=== PATIENT | male | born 1985 | race Caucasian/White ===

== ENCOUNTER 2018-01-05 12:41 | Emergency (ER) | payer OTHER ==
[~2018-01-05] VITALS: Ht 175.3 cm; Wt 63.5 kg
== END 2018-01-05 14:07 | disposition home or self-care (01) ==
LOC: ER 12:41
DX: S81.821A Laceration with foreign body, right lower leg, initial encounter (principal); W25.XXXA Contact with sharp glass, initial encounter; Y93.89 Activity, other specified; Y92.89 Other specified places as the place of occurrence of the external cause; Y99.8 Other external cause status